=== PATIENT | male | born 1955 | race Caucasian/White ===

== ENCOUNTER 2017-07-13 19:30 | Emergency (ER) | payer BC | END 2017-07-13 19:33 | LOC: EDBD 19:30 → TRA 19:30 | PROC: 5A12012 Performance of Cardiac Output, Single, Manual (ICD-10-PCS; principal; 2017-07-13) | DX: I46.9 Cardiac arrest, cause unspecified (principal); S09.90XA Unspecified injury of head, initial encounter; S19.9XXA Unspecified injury of neck, initial encounter; S05.12XA Contusion of eyeball and orbital tissues, left eye, initial encounter; V47.0XXA Car driver injured in collision with fixed or stationary object in nontraffic accident, initial encounter | CPT/HCPCS: 80048; 81003; 82150; 83690; 85025; 86850; 86900; 86901; 99281; 99285; G0480; J0171 ==